=== PATIENT | male | born 1985 | race Caucasian/White ===

== ENCOUNTER 2017-09-26 15:19 | Outpatient (CLI) | payer MEDICAID ==
--- NOTE | 2017-09-26 15:42 | XRAY Report ---
Procedure Date: 09/26/2017 Accession Number: [id number] / [id number] Procedure: XRS - Elbow 3 View RT CPT Code: FULL RESULT: EXAM: Elbow 3 View RT DATE: 09/26/2017 3:36 PM CLINICAL HISTORY: ELBOW JOINT PAIN, RIGHT COMPARISON: None. TECHNIQUE: Lateral view, radial head view, AP view and a single oblique view are submitted of the right elbow. FINDINGS: No fracture or dislocation is identified. There is no joint effusion. Soft tissues are unremarkable. IMPRESSION: Normal elbow radiography. [facility]
== END 2017-09-26 15:20 | disposition home or self-care (01) ==
LOC: DI.S 15:19
PROVIDERS: ATTEND Nurse Practitioner Family
DX: M25.521 Pain in right elbow (principal)